=== PATIENT | female | born 1970 | race Caucasian/White ===

== ENCOUNTER 2020-07-23 14:01 | Outpatient (RCR) | payer OTHER, SELFPAY | END 2020-10-05 23:59 | LOC: IMMUN 14:01 | PROVIDERS: PCP Family Medicine; Visit Provider Family Medicine | DX: Z23 Encounter for immunization (principal) | CPT/HCPCS: 0001A; 0002A; 91300 ==

== ENCOUNTER 2022-10-19 09:56 | Day surgery (SDC) | payer OTHER, SELFPAY ==
--- NOTE | 2022-10-18 17:23 | PCM.HP.BLA ---
History and Physical Date of Admission: 10/19/22 Pre-Op History and Physical ? HPI: The patient is a 52 year old female presenting for pre-operative visit. She is scheduled for Hysteroscopy D&C and Polypectomy , for pmb, endometrial polyp, thickened EM on 10/19/22. Procedure discussed along with risks, benefits and complications. Other alternatives discussed for management. Consent form signed? Yes. ? ? PAST MEDICAL HISTORY PAST MEDICAL HISTORY Diagnosis Date ? NONE ? ? ? PAST SURGICAL HISTORY PAST SURGICAL HISTORY Procedure Laterality Date ? CONIZATION CERVIX W/WO D&C RPR ELTRD EXC ? ? ? LEEP-Cervix ? FNA WITH IMAGING ? 11/21/12 ? U/S FNA right breast cysts x 3 ? FNA WITH IMAGING ? 10/28/14 ? U/S FNA right breast cysts x 3 ? LIG/TRNSXJ FLP TUBE ABDL/VAG APPR UNI/BI ? ? ? Tubal ligation ? LUMPECTOMY/RADIOTHERAPY DIAG MAMM/A10 ? 96 ? Ronald ? RECONST MANDIBLE,C/L OSTEOTOMY ? 2002 ? Broken jaw ? ? ? CURRENT MEDICATIONS Current Outpatient Medications Medication Sig Dispense Refill ? benzonatate (TESSALON PERLE) 100 mg capsule Take 1-2 capsules every 8 hours as needed. 60 capsule 0 ? miSOPROStol (CYTOTEC) 200 mcg tablet Use 2 tablets vaginally as directed. The night before the procedure and the morning of the procedure. (Patient not taking: Reported on 08/21/2022) 4 tablet 0 ? estradiol (ESTRACE) 1 mg tablet Take 1 tablet by mouth once daily. 90 tablet 2 ? progesterone micronized (PROMETRIUM) 100 mg capsule Take 1 capsule by mouth daily at bedtime. 90 capsule 1 ? escitalopram oxalate (LEXAPRO) 10 mg tablet Take 1 tablet by mouth once daily. (Patient not taking: Reported on 08/21/2022) 90 tablet 3 ? Lactobac no.41/Bifidobact no.7 (PROBIOTIC-10 ORAL) ? No current facility-administered medications for this visit. ? ? ALLERGIES: Adhesive Tape-Silicones ? PERSONAL HISTORY: SOCIAL HISTORY Social History ? Tobacco Use ? Smoking status: Never ? Smokeless tobacco: Never Vaping Use ? Vaping Use: Never used Substance Use Topics ? Alcohol use: Yes ? Drug use: No ? FAMILY HISTORY: FAMILY HISTORY FAMILY HISTORY Problem Relation Age of Onset ? Hypertension Father ? ? Coronary Artery Disease Father ? ? Stroke Sister ? ? other (multiple scelorsis) Sister ? ? Cancer Maternal Grandmother ? ? OVARIAN ? Diabetes Maternal Grandmother ? ? Breast Cancer Maternal Aunt ? ? ? REVIEW OF SYMPTOMS: negative except as noted above PHYSICAL EXAMINATION: ? VITALS: Blood pressure 146/90, height 5' 3 (1.6 m), weight 205 lb (93 kg), last menstrual period 11/30/2019. ? GENERAL: The patient is well nourished, well hydrated in no acute distress. , The patient is oriented to time, place, and person. NECK: full range of motion LUNGS: Clear to auscultation bilaterally. no wheezes, rhonchi or rales HEART: Regular rate and rhythm, Normal heart sounds, and No murmurs or gallops ? IMPRESSION: 52yo with PMB, Endometrial Polyp, Thickened Endometrium ? PLAN: Hysteroscopy, D&C, possible Polypectomy with Symphion ? Pt has been counseled on risks/benefits and alternatives of surgery including but not limited to anesthesia, bleeding, infection, uterine perforation with subsequent injury to pelvic structures including bowel, bladder, ureters and vessels. Pt wishes to proceed with surgery at this time. ? Pre and post op instructions reviewed ? I have reviewed and updated past medical and surgical history, medications and allergies Lina Retana MD
[2022-10-19 10:22] VITALS: BP 165/85; PULSE 77; RESP 16; TEMP 36.5; O2SAT 100; BMI 36.1
[2022-10-19 10:24] LABS: Hematocrit 39.6 % (37-47); Hemoglobin 13.6 g/dL (12.0-15.0); Mean Corp Hgb Conc 34.3 g/dL (32-36); Mean Corpuscular Hgb 30.9 pg (27.0-32.0); Mean Platelet Vol. 10.7 fl (6.2-12.0); Platelet Count 252 K/mm3 (150-450); RBC Distribution Width CV 12.3 % (11.6-14.6); RBC Distribution Width SD 40.1 fl (35.1-43.9); White Blood Count 5.8 K/mm3 (4.4-11.0)
[2022-10-19] MEDS: Lactated Ringers 1,000 ML 15 ML IV (10:25)
--- NOTE | 2022-10-19 11:30 | EMB_PTH ---
PATIENT: EVERTON CARCAMO LOC: [facility] [place] U#:[id number] AGE/SX: 52/F ROOM: RE10/19/[address]: Dr. Lina Mckeon, MDDOB: 1970 BED: DIS: 10/19/2022 SPEC #: [id number] RECD: 10/19/22 12:46 STATUS: MIKE JANET #: [id number] KYLEE: 10/19/22 11:[address]: Lina Mckeon DEPT: SURGICAL PATHOLOGY RECD BY: Taylor Granger ENTERED: 10/19/22 13:25 SP TYPE: ENDOM BX/C JM DR: Dr. Leander Gooden MD Tissues: Endometrium, NOS Procedures: Surgery Specimen Level IV HEADER OPERATION: Hysteroscopy, D & C Symphion PRE-OP DIAGNOSIS: Postmenopausal bleeding, endometrial polyp, thickened endometrium TISSUE SUBMITTED: Endometrial curettings MICROSCOPIC DIAGNOSIS Endometrium, curettings: Polypoid fragments of benign endometrium with focal simple cystic change. Transition endometrium with recent stromal hemorrhage. Fragments of benign myometrium. AM:janae 10/20/2022 COMMENT This case was reviewed and diagnosis discussed with Dr. Mckeon on 11/02/2022 at 9:00 a.m. MICROSCOPIC DESCRIPTION Slides are reviewed. GROSS DESCRIPTION Received in fixative is one container labeled with the patient's name and designated endometrial curettings. The specimen consists of multiple irregular fragments of pink-lockhart soft tissue that in aggregate measure 3.0 x 2.2 x 0.2 cm. The specimen is totally submitted in one cassette. / AM:janae 10/19/2022 TC:5 CPT: 12356
--- NOTE | 2022-10-19 12:08 | OP.PCM_ITS ---
Report of Operation Date of Procedure: 10/19/22 Pre-Operative Diagnosis: PMB, thickened Endometrium, Endometrial polyp Post-Operative Diagnosis: PMB, thickened Endometrium Surgery/Procedure Performed:: hysteroscopy, D&C with symphion Description of Surgical Findings:: diffusely thickened endometrium but no polyps noted. Surgeon: Lina Mckeon Type of Anesthesia: MAC Special Medications: none Specimen's removed: endometrial curettings Drains: none Estimated Blood Loss (mL): <5cc Fluids Replaced: 400 Description of Procedure: Informed consent was obtained the patient was taken the operating room she was placed in supine position. She was given anesthesia. She was then placed in the [facility] where she was prepped and draped in the normal sterile fashion. Bladder drained. At this time the weighted speculum was placed in the posterior fornix of vagina. Single-tooth tenaculum was used to gently grasp the anterior lip the cervix. At this time the uterine cavity was sounded to approximately 8 cm. Gentle dilatation was performed once adequate dilatation of the cervix was achieved the hysteroscope using normal saline as a distention medium was placed. Tubal ostia visualized. thickened endometrium noted, no polyp noted. Symphion resecting device used to obtain endometrial curettings. Tissue will be sent to pathology for evaluation. Tenaculum removed. Good hemostasis. Instrument, lap count correct x 2. Vaginal Sweep was negative. Grafts/Implants Used: none Procedure Start Time: 11:52 Procedure Stop Time: 12:06 Complications none Admit VTE Documentation VTE Present on Admission: Yes VTE Mechan Device Prophylaxis: SCD's VTE Pharm Prophylaxis ordered?: No Reason prophylaxis not ordered:: Procedure Not Indicated
--- NOTE | 2022-10-19 12:12 | DCINST_ITS ---
Discharge Instructions Procedure D&C Diet Discharge Diet: No restrictions Activity May resume sexual activity in: 1 week Dressing / Incision Call your doctor if you observe: Fever of 101 or Higher, Inability to urinate, Using more than 1 pad per hour and Uncontrolled pain Follow Up Care Please Follow Up With: Lina Mckeon MD When: 1-2 weeks post OP if you need an appointment please call [phone] Test Results: Test results from this visit will be discussed in further detail at your follow- up appointment, if applicable. Discharge Plan Admission Attending Provider: Lina Mckeon Primary Care Provider: Leander Gooden Discharge Orders/Prescriptions Prescriptions: No Action estradiol 1 mg Tablet 1 mg PO DAILY Rx Instructions: off 1 week; repeat cycle progesterone micronized 100 mg Capsule 100 mg PO QHS Referrals / Follow Up: Leander Gooden MD [Primary Care Provider] - Disposition Discharge Orders: Discharge Patient (Routine); Ordered 10/19/22 Ordered By: Dr. Lina Mckeon
[2022-10-19 12:15] VITALS: BP 153/98; BP 165/85; PULSE 101; RESP 16; TEMP 37; O2SAT 96
[2022-10-19 12:20] VITALS: BP 150/94; BP 165/85; PULSE 94; RESP 16; O2SAT 94
[2022-10-19 12:25] VITALS: BP 145/90; BP 165/85; PULSE 90; RESP 18; O2SAT 95
[2022-10-19 12:30] VITALS: BP 143/80; BP 165/85; PULSE 86; RESP 18; TEMP 36.4; O2SAT 95
[2022-10-19 12:49] VITALS: BP 165/85
== END 2022-10-19 12:54 | disposition home or self-care (01) ==
LOC: SDC 10:03 → AC 10:07
PROVIDERS: PCP Family Medicine; Referring Provider Obstetrics & Gynecology; Visit Provider Obstetrics & Gynecology
PROC: 0UB98ZZ Excision of Uterus, Via Natural or Artificial Opening Endoscopic (ICD-10-PCS; CPT 58558; principal; 2022-10-19 11:15)
DX: N95.0 Postmenopausal bleeding (principal); R93.89 Abnormal findings on diagnostic imaging of other specified body structures
CPT/HCPCS: 58558; 00952; 85027; 88305; J7120; J2405